=== PATIENT | male | born 1950 | race Caucasian/White ===

== ENCOUNTER 2022-02-02 08:51 | Emergency (ER) | payer OTHER, SELFPAY ==
[2022-02-02 08:53] VITALS: BP 145/89; PULSE 104; RESP 16; TEMP 35.9; O2SAT 96; BMI 27.3
[2022-02-02 10:13] LABS: Absolute Lymphocyte Count 1.86 X10^3/uL (0.83-4.51); Basophil# 0.05 X10^3/uL; Basophil% 0.3 % (0-1); Eosinophil# 0.03 X10^3/uL; Eosinophils% 0.2 % (0-5); Hematocrit 42.1 % (40-54); Hemoglobin 14.1 g/dL (13.0-16.5); Lymphocyte # 1.86 X10^3/ul (0.83-4.51); Lymphocyte % 9.7 % (19-41); Mean Corp Hgb Conc 33.5 g/dL (32-36); Mean Corpuscular Hgb 30.8 pg (27.0-32.0); Mean Corpuscular Volume 91.9 fL (80-94); Mean Platelet Vol. 9.6 fl (6.2-12.0); Monocyte# 1.19 X10^3/uL; Monocyte% 6.2 % (0-10); NRBC Flagged by Analyzer 0 % (0-5); Neutrophil # 16.02 X10^3/uL (2.7-7.7); Platelet Count 403 K/mm3 (150-450); RBC Distribution Width CV 13.9 % (11.6-14.6); Red Blood Count 4.58 M/mm3 (4.6-6.2); White Blood Count 19.3 K/mm3 (4.4-11.0)
--- NOTE | 2022-02-02 10:14 | ED.VIS.GI ---
HPI HPI - GI History of Present Illness Chief Complaint: Abd Pain Informant: patient Narrative Narrative: Presents with lower abdominal discomfort difficulty urinating and difficult bowel movements for last 2 days. No fevers. He states only small amount of stools he is straining. However unable to urinate also until arrival in the ED. He has hemorrhoids states with straining noted blood. He is 6 weeks postop two-vessel [facility]G [facility]. Denies any large prostate history. Abdomen feels more distended. Appendectomy in the past. Denies any fevers. PFSH PFSH Home Medications tamsulosin 0.4 mg capsule (Flomax) 0.4 mg PO DAILY #7 caps 02/02/22 [Rx Last Taken Unknown] Allergy/AdvReac Type Severity Reaction Status Date / Time No Known Allergies Allergy Verified 02/02/22 11:49 Social History Smoking Status: Never smoker ROS ROS ED Constitutional Constitutional ED: Denies chills, fever(s) or sweats Eyes Eyes: Denies change in vision ENT ENT ED: Denies dysphagia or sore throat Cardiovascular Cardiovascular: Denies chest pain, leg edema, palpitations or racing heartbeat Respiratory/Chest Respiratory/Chest: Denies cough, dyspnea or dyspnea on exertion Gastrointestinal Gastrointestinal: Reports abdominal pain and other Details: Bleeding hemorrhoid ; Denies diarrhea, nausea or vomiting Genitourinary Genitourinary ED: Denies dysuria, hematuria or urinary frequency Musculoskeletal Musculoskeletal: Denies back pain, extremity pain or neck pain Integumentary Denies rash or wounds Neurologic Neurologic: Denies headache(s), paresthesias or weakness EXAM Physical Exam Const Vital Signs: 02/02/22 08:53 02/02/22 11:46 02/02/22 13:13 Temperature 96.6 F L Temperature Source Temporal Pulse Rate 104 H 87 77 Respiratory Rate 16 15 16 Blood Pressure 145/89 H 137/82 H 124/90 H Blood Pressure Mean 107 100 101 Pulse Ox 96 98 96 Oxygen Delivery Method Room Air Room Air Room Air 02/02/22 13:53 Temperature Temperature Source Pulse Rate Respiratory Rate 16 Blood Pressure 129/85 H Blood Pressure Mean Pulse Ox 98 Oxygen Delivery Method Positive well nourished and well developed General Appearance ED: well developed and NAD HEENT Reports moist mucous membranes normocephalic and atraumatic Eyes PERRL, EOMs intact bilaterally and conjunctivae normal General Eye ED: Yes normal appearance of both eyes Neck no lymphadenopathy and supple General: Negative for tenderness Chest Wall Chest: Negative for tenderness Resp normal respiratory effort and normal air movement Effort and Inspection: symmetric chest movement; Negative for respiratory distress Cardio regular rate, regular rhythm and no murmurs Peripheral Pulses: pulses 2+ throughout GI normal to inspection, nondistended, normoactive bowel sounds GI Narrative: Suprapubic lower abdominal distention. No guarding or rebound. Rectal: Posterior hemorrhoid mild tenderness pink-tinged blood on the sheet. Rectal had brown soft stools. No gross blood. Palpation: Negative for guarding or rebound tenderness present Back/Spine no CVA tenderness and no thoracic nor lumbar tenderness Extremity normal to inspection General Extremety ED: Negative for edema or tenderness General Extremity: Negative for edema Neuro oriented x3 and no sensory deficits noted Sensorium / Orientation: awake and alert Skin no rashes or lesions noted and no wounds MDM MDM MDM Narrative Medical decision making narrative: Patient distended lower abdomen. He had urination in the ED. Clinically this is concerns for urine retention likely causing obstruction with decreased stool output. Rectal exam with hemorrhoids appears to have bleeding at the hemorrhoid however no active bleeding. With a digital exam noted brown stools refer to likely bleeding higher up. Initial order for labs and urine, bladder scan ordered per nursing is only 35 to [address] was added for further evaluation. Labs had a white count of 19.3 total 14.1 creatinine 1.03 sodium 133. Lipase liver enzymes normal. CT scan noted moderately distended bladder along with a 3 mm left UVJ stone that is nonobstructing. Urine was collected after Van catheter placed hematuria without infection. He had more than 1500 cc output. Clinically was improving. Without infection white count likely reactive. No cough. Renal function normal. Is discharged with a leg bag with urology follow-up. He started on Flomax. Without obstruction from the stone no clinical colic symptoms. This will likely pass. Return precautions. All questions were answered. Lab Data Attestation: I reviewed the patient's lab results. Labs: Laboratory Results - last 24 hr 02/02/22 02/02/22 02/02/22 09:00 10:00 10:00 WBC 19.3 H RBC 4.58 L Hgb 14.1 Hct 42.1 MCV 91.9 MCH 30.8 MCHC 33.5 RDW Std Deviation 47.0 H RDW Coeff of Gina 13.9 Plt Count 403 MPV 9.6 Immature Gran % (Auto) 0.600 Neut % (Auto) 83.0 H Lymph % (Auto) 9.7 L [place] % (Auto) 6.2 Eos % (Auto) 0.2 Baso % (Auto) 0.3 Absolute Neuts (auto) 16.0 H Absolute Lymphs (auto) 1.86 Nucleated RBC % 0 PT 12.9 INR 1.0 APTT 31.2 Sodium 133 L Potassium 3.9 Chloride 97 L Carbon Dioxide 28.0 Anion Gap 8 BUN 16 Creatinine 1.03 Estim Creat Clear Calc 59.72 Est GFR (MDRD) Af Amer 91 Est GFR (MDRD) Non-Af 75 BUN/Creatinine Ratio 15.5 Glucose 103 Calcium 9.8 Total Bilirubin 1.20 H AST 17 ALT 28 Alkaline Phosphatase 91 Total Protein 8.6 H Albumin 3.9 Globulin 4.7 H Albumin/Globulin Ratio 0.8 L Lipase 114 Urine Color Urine Clarity Urine pH Ur Specific [place] Urine Protein Urine Glucose (UA) Urine Ketones Urine Occult Blood Urine Nitrite Urine Bilirubin Urine Urobilinogen Ur Leukocyte Esterase Urine RBC Urine WBC Ur Squamous Epith Cells Urine Bacteria Urine Mucus 02/02/22 11:49 WBC RBC Hgb Hct MCV MCH MCHC RDW Std Deviation RDW Coeff of Gina Plt Count MPV Immature Gran % (Auto) Neut % (Auto) Lymph % (Auto) [place] % (Auto) Eos % (Auto) Baso % (Auto) Absolute Neuts (auto) Absolute Lymphs (auto) Nucleated RBC % PT INR APTT Sodium Potassium Chloride Carbon Dioxide Anion Gap BUN Creatinine Estim Creat Clear Calc Est GFR (MDRD) Af Amer Est GFR (MDRD) Non-Af BUN/Creatinine Ratio Glucose Calcium Total Bilirubin AST ALT Alkaline Phosphatase Total Protein Albumin Globulin Albumin/Globulin Ratio Lipase Urine Color Yellow Urine Clarity Sl. Cloudy Urine pH 6.0 Ur Specific [place] 1.015 Urine Protein 15 H Urine Glucose (UA) Normal Urine Ketones Negative Urine Occult Blood Negative Urine Nitrite Negative Urine Bilirubin Negative Urine Urobilinogen Normal Ur Leukocyte Esterase Negative Urine RBC 0 SEEN Urine WBC 0 SEEN Ur Squamous Epith Cells 0 SEEN Urine Bacteria 0 SEEN Urine Mucus 0 SEEN Radiography Diagnostic Testing: Clinical Impression(s) from Imaging Studies Abdomen/Pelvis CT 10/04/22 10:17 IMPRESSION: 1. 3 mm nonobstructing stone at the left ureteral vesicle junction. 2. Moderate bladder distention. 3. Sigmoid diverticulosis without diverticulitis. Electronically Signed: Tree Buitrago MD at 11:09 EDT , Discharge Plan Triage Chief Complaint: Abd Pain ED Provider: Brian Diaz Dx/Rx/DC Orders Clinical Impression: Acute retention of urine, Hematuria, Kidney stone on left side, Hemorrhoids, external Instructions: ED Van Catheter, Care, ED Urinary Retention, Male, ED Kidney Stone w/ Colic Prescriptions: New tamsulosin [Flomax] 0.4 mg capsule 0.4 mg PO DAILY Qty: 7 0RF Primary Care Provider: [facility] Referrals: Varinder Saavedra MD [Med Staff - Active Staff] - 3-5 Days NOT,DEFINED [Non-Staff] - Activity Restrictions/Additional Instructions: Continue Van catheter more than [address] scan with a 3 mm left UVJ kidney stone. No signs of infection in urine. Take Flomax as prescribed. Follow-up urology for reevaluation as an outpatient. Return if any worsening symptoms. Disposition Disposition: Home, Self Care Discharge Date/Time: 02/02/22 14:02
--- NOTE | 2022-02-02 10:17 | CT_ITS ---
STUDY: CT ABDOMEN AND PELVIS WITHOUT CONTRAST REASON FOR EXAM: Male, 71 years old. lower abd pain. NOTE STONE ON LEFT RADIATION DOSAGE (If Supplied By Facility): CTDIvol = ( 7.57 ) mGy, DLP = ( 387.59 ) mGycm TECHNIQUE: Transaxial images were obtained from the dome of the diaphragm to the symphysis pubis without oral contrast, and without intravenous contrast. Sagittal and coronal images were reconstructed. Individualized dose optimization techniques were used for this CT. COMPARISON: None. FINDINGS: The visualized lung bases are unremarkable. The visualized portions of the heart are within normal limits. Normal liver. Normal gallbladder and extrahepatic biliary system. Normal spleen. Normal pancreas. Normal bilateral adrenal glands. Normal right kidney. 3 mm nonobstructing stone in the left ureterovesical junction. Normal visualized stomach. Normal small intestine. There are multiple colonic diverticula consistent with diverticulosis. The appendix is visualized and appears normal. Normal abdominal aorta. Normal inferior vena cava. Normal retroperitoneum. Moderate bladder distention. Small bilateral inguinal hernias containing fat. Normal osseous structures. CT/Abdomen/Pelvis without Cont IMPRESSION: 1. 3 mm nonobstructing stone at the left ureteral vesicle junction. 2. Moderate bladder distention. 3. Sigmoid diverticulosis without diverticulitis. Electronically Signed: Tree Buitrago MD at 11:09 EDT ,
[2022-02-02 10:31] LABS: ALB/GLOB Ratio 0.8 RATIO (0.9-2.4); AST(SGOT) 17 U/L (15-37); Alanine Aminotransfer ALT/SGPT 28 U/L (16-61); Albumin, Serum 3.9 g/dL (3.2-5.0); Alkaline Phosphatase 91 U/L (45-117); Anion Gap 8 (5-15); BUN 16 mg/dL (7-18); BUN/Creat Ratio 15.5 RATIO (10-20); Calcium,Total 9.8 mg/dL (8.5-10.1); Chloride 97 mmol/L (98-107); Creatinine, Serum 1.03 mg/dL (0.70-1.30); EST Glomerular Filtration Rate 75 mL/min (>60); Est Glom Filt Rate - Afr Amer 91 mL/min (>60); Estimated Creatinine Clearance 59.72 ml/min; Globulin 4.7 g/dL (2.2-4.2); Glucose 103 mg/dL (74-106); Lipase 114 U/L (73-393); Potassium 3.9 mmol/L (3.5-5.1); Protein, Total 8.6 g/dL (6.4-8.2); Sodium Level 133 mmol/L (136-145)
[2022-02-02 11:29] LABS: Prothrombin Time (Protime)PT. 12.9 SECONDS (11.7-14.9)
[2022-02-02 11:30] LABS: Partial Thromboplast Time 31.2 Seconds (24.1-36.2)
[2022-02-02 11:46] VITALS: BP 137/82; PULSE 87; RESP 15; O2SAT 98
[2022-02-02] MEDS: Lidocaine Jelly 2% 20 ML Syringe (URO-JET) 1 APPLIC TOPICAL (11:48)
[2022-02-02 11:59] LABS: Bacteria 0 SEEN /hpf (None Seen); Mucous, Urine 0 SEEN /hpf (<or=2+); Red Blood Cells-Urine 0 SEEN /hpf (0-5); Squamous Epithelial Cells - UA 0 SEEN /hpf (0-5); White Blood Cells 0 SEEN /hpf (0-5)
[2022-02-02 12:25] LABS: Color, Urine Yellow (Yellow); Glucose, Dipstick Normal (Normal); Ketone-Dipstick Negative (Negative); Leukocyte Esterase-Dipstick Negative /ul (Negative); Nitrite-Dipstick Negative (Negative); Occult Blood-Urine Negative /ul (Negative); Protein-Dipstick 15 mg/dl (Negative); Specific Gravity, Urine 1.015 (1.002-1.030); Urine Bilirubin Dipstick Negative (Negative); Urine Clarity Sl. Cloudy (Clear); Urine Urobilinogen Normal (Normal)
[2022-02-02 13:13] VITALS: BP 124/90; PULSE 77; RESP 16; O2SAT 96
[2022-02-02 13:53] VITALS: BP 129/85; RESP 16; O2SAT 98
[2022-02-02] MEDS: Tamsulosin HCl 0.4 MG Capsule PO (14:01)
== END 2022-02-02 14:02 | disposition home or self-care (01) ==
PROVIDERS: Emergency Provider Emergency Medicine; Visit Provider Emergency Medicine
DX: N20.2 Calculus of kidney with calculus of ureter (principal); R33.9 Retention of urine, unspecified; R14.0 Abdominal distension (gaseous); K64.4 Residual hemorrhoidal skin tags; R31.9 Hematuria, unspecified; Z95.1 Presence of aortocoronary bypass graft
CPT/HCPCS: 51702; 74176; 80053; 81001; 83690; 85025; 85610; 85730; 99285; J7050; A4216